=== PATIENT | female | born 1985 | race Caucasian/White ===

== ENCOUNTER 2017-07-02 16:20 | Emergency (ER) | payer MEDICAID, OTHER ==
[2017-07-02 16:20] VITALS: BMI 30.9
[2017-07-02 17:37] LABS: BASO % 0.4 % (0.0-2.0); EOS # 0.3 K/uL (0.0-0.7); EOS % 2.6 % (0.0-4.0); HEMATOCRIT 37.1 % (34.0-47.0); LYMPH # 2.7 K/uL (1.0-4.3); LYMPH % 22.1 % (20.0-40.0); MEAN CELL VOLUME 70.4 fL (81.0-99.0); MEAN CORPUSCULAR HEMOGLOBIN 22.2 pg (27.0-31.0); MEAN CORPUSCULAR HGB CONC 31.5 g/dL (33.0-37.0); MEAN PLATELET VOLUME 8.8 fL (7.2-11.7); MONO # 0.5 K/uL (0.0-0.8); MONO % 4.3 % (0.0-10.0); RED CELL DISTRIBUTION WIDTH 14.3 % (11.5-14.5); WHITE BLOOD COUNT 12.2 K/uL (4.8-10.8)
[2017-07-02 17:44] LABS: RBC URINE 16 /hpf (0-3); URINE BACTERIA RARE (<OCC); URINE BILIRUBIN NEGATIVE (NEGATIVE); URINE BLOOD 3+ (NEGATIVE); URINE COLOR Yellow (YELLOW); URINE GLUCOSE (UA) NORMAL (Normal); URINE KETONE NEGATIVE (NEGATIVE); URINE LEUKOCYTE ESTERASE TRACE Leu/uL (Negative); URINE PROTEIN 1+ mg/dL (NEGATIVE); URINE UROBILINOGEN NORMAL mg/dL (0.2-1.0); WBC URINE 7 /hpf (0-5)
[2017-07-02 17:49] LABS: CHLORIDE 99 mmol/L (98-107); POTASSIUM 3.5 mmol/L (3.6-5.2); SODIUM 137 mmol/L (132-148)
[2017-07-02 17:51] LABS: GFR AFRICAN-AMERICAN > 60
[2017-07-02 17:52] LABS: ALB/GLOB RATIO 1.1 (1.0-2.1); ALKALINE PHOSPHATASE 67 U/L (38-126); ALT/SGPT 24 U/L (9-52); AST/SGOT 19 U/L (14-36); BILIRUBIN,TOTAL 0.5 mg/dL (0.2-1.3); BLOOD UREA NITROGEN 10 mg/dL (7-17); CARBON DIOXIDE 23 mmol/L (22-30); GLUCOSE,RANDOM 109 mg/dL (65-105); TOTAL PROTEIN 7.2 g/dL (6.3-8.3)
[2017-07-02 17:53] LABS: CALCIUM 8.8 mg/dl (8.6-10.4)
[2017-07-02] MEDS ORDERED: Sodium Chloride 0.9% 1,000 ML IV ONE (17:53)
[2017-07-02] MEDS ORDERED: Sodium Chloride 0.9% 1,000 ML ONE (18:07)
--- NOTE | 2017-07-02 20:44 | US ---
EXAM: US , Transvaginal CLINICAL HISTORY: 31 years old, female; Signs and symptoms; Lmp or gestational age (in weeks): 6-4-27; Other: Bleeding / clots; ; Patient HX: Beta 2280.40; Additional info: Pain/bleeding, R/O ectopic. TECHNIQUE: Real-time transvaginal obstetrical ultrasound of the maternal pelvis and a first trimester with image documentation. Transvaginal imaging was used for better evaluation of the fetus and adnexa. COMPARISON: No relevant prior studies available. FINDINGS: Gestation: A gestational sac is noted within the cervix. The sac measures 1.6 x 0.9 x 1.2 cm for a mean sac diameter 1.2 cm from its later 5 weeks and 3 days. A yolk sac is present. A pole is present. No cardiac activity is noted. Placenta/amniotic fluid: Cannot be adequately evaluated due to the early gestational age. Uterus/cervix: There is a small amount of complex fluid noted within the endometrial canal. The stripe measures a 9 mm in thickness. No myometrial mass. Ovaries: The left ovary measures 2.4 x 1.6 x 2.2 cm. Subcentimeter follicles are present. Blood flow is seen in the left ovary on color Doppler examination. The right ovary measures 3 point 2 x 2 by 3.1 cm. Blood flow seen in the right ovary on color Doppler examination subcentimeter follicles present. No mass. Free fluid: No free fluid. IMPRESSION: 1. in progress. The gestational sac was noted within the cervix at the beginning of the examination and had moved distally at the end of the examination. No cardiac activity was noted within the pole. EXAM: US First Trimester, Transabdominal CLINICAL HISTORY: 31 years old, female; Signs and symptoms; Lmp or gestational age (in weeks): 6-4-27; Other: Bleeding / clots; ; Patient HX: Beta 2280.40; Additional info: Pain/bleeding, R/O ectopic. TECHNIQUE: Real-time transabdominal obstetrical ultrasound of the maternal pelvis and a first trimester with image documentation. EXAM DATE/TIME: Exam ordered 07/02/2017 5:50 PM COMPARISON: No relevant prior studies available. FINDINGS: Placenta/amniotic fluid: Cannot be adequately evaluated due to the early gestational age. Uterus/cervix: The uterus measures 11.5 x 4.5 x 5.9 cm. . Complex fluid is noted within the inferior aspect of the endometrial canal. No myometrial mass. Ovaries: The right ovary measures 3.1 x 2 x 3.5 cm. And 1.8 cm hypoechoic lesion is noted in the right ovary. Blood flow is demonstrated in the right ovary on pulsed Doppler and color Doppler examination. The left ovary is not seen as a separate structure. Free fluid: No free fluid. IMPRESSION: Complex fluid noted within the endometrial canal inferiorly. Please see the report for the transvaginal ultrasound for full discussion of the findings on this examination.
--- NOTE | 2017-07-02 21:57 | C.PDOC ---
Time Seen by Provider: 07/02/17 16:38 Chief Complaint (Nursing): Female Genitourinary History Per: Patient, Family Onset/Duration Of Symptoms: Days (1) Current Symptoms Are (Timing): Still Present Severity: Moderate Quality Of Discomfort: Cramping Alleviating Factors: None Additional History Per: Prior Records Abnormal Vaginal Bleeding: Yes Last Menstral Period: 05/09/2017 Past Medical History Reviewed: Historical Data, Nursing Documentation, Vital Signs Vital Signs: Last Vital Signs Temp 98.1 F 07/02/17 16:23 Pulse 78 07/02/17 16:23 Resp 15 07/02/17 16:23 BP 121/79 07/02/17 16:23 Pulse Ox 100 07/02/17 16:23 - Medical History PMH: No Chronic Diseases - [facility] Procedures INTRODUCTION OF SERUM/TOX/VACCINE INTO MUSCLE, PERC APPROACH (09/26/15) REPAIR FEMALE PERINEUM, EXTERNAL APPROACH (09/26/15) Family History: States: Unknown Family Hx - Social History Hx Alcohol Use: No Hx Substance Use: No Review Of Systems Except As Marked, All Systems Reviewed And Found Negative. Constitutional: Negative for: Fever, Weakness Cardiovascular: Negative for: Chest Pain, Light Headedness Respiratory: Negative for: Shortness of Breath Gastrointestinal: Negative for: Vomiting Genitourinary: Positive for: Vaginal Bleeding, Pelvic Pain. Negative for: Dysuria Musculoskeletal: Negative for: Neck Pain, Back Pain Skin: Negative for: Rash Neurological: Negative for: Weakness, Numbness, Seizures, Altered Mental Status Physical Exam - Physical Exam Appears: Non-toxic, No Acute Distress Skin: Normal Color, Warm, Dry, No Rash Head: Atraumatic, Normacephalic Eye(s): bilateral: Normal Inspection, PERRL, EOMI Neck: Normal ROM, Supple Cardiovascular: Rhythm Regular Respiratory: Normal Breath Sounds, No Accessory Muscle Use Gastrointestinal/Abdominal: Soft, Tenderness (suprapubic) Back: No CVA Tenderness Extremity: Normal ROM Neurological/Psych: Oriented x3, Normal Motor, Normal Sensation ED Course And Treatment - Laboratory Results Result Diagrams: 07/02/17 17:30 07/02/17 17:30 Urine POC: Positive O2 Sat by Pulse Oximetry: 100 Pulse Ox Interpretation: Normal - CT Scan/US Pelvic US Other Rad Studies (CT/US): Read By Radiologist, Radiology Report Reviewed CT/US Interpretation: IMPRESSION: Complex fluid noted within the endometrial canal inferiorly. Please see the. report for the transvaginal ultrasound for full discussion of the findings on. this examination. Reassessment Condition: Improved - Physician Consult Information Physician Contacted: Colin Degroot (masonry inspector) Outcome Of Conversation: She performed a pelvic exam on pt. She states pt should be discharged home on Doxycycline for 5 days and f/up in clinic. Disposition Counseled Patient/Family Regarding: Studies Performed, Diagnosis, Need For Followup, Rx Given - Disposition Referrals: [facility] [Outside] Disposition: HOME/ ROUTINE Disposition Time: 21:57 Condition: STABLE Additional Instructions: Follow up with a Cloth Sponger within 1 week for further evaluation and treatment. Return to the ER if you develop dizziness, fever, worsening of symptoms or if you have any other concerns. Prescriptions: Doxycycline Hyclate 100 mg PO BID #10 capsule Ibuprofen [Motrin Tab] 600 mg PO Q8 PRN #30 tab PRN Reason: Pain, Moderate (4-7) Instructions: Spontaneous Miscarriage (ED) Forms: [employer] ([place]) - Clinical Impression Clinical Impression: Spontaneous
[2017-07-02 22:14] VITALS: BP 121/80; PULSE 86; RESP 18; TEMP 97.8; O2SAT 99
== END 2017-07-02 22:13 | disposition home or self-care (01) ==
LOC: C.ER 16:20
DX: O03.9 Complete or unspecified spontaneous abortion without complication (principal)
CPT/HCPCS: 76805; 76817; 80053; 81001; 84702; 84703; 85025; 86850; 86900; 96360; 99285; J7040

== ENCOUNTER 2019-01-31 07:21 | Inpatient (IN) | payer MEDICAID, OTHER ==
[2019-01-31] MEDS ORDERED: Lactated Ringer's 1,000 ML IV SCH (09:00)
--- NOTE | 2019-01-31 09:06 | OBHP ---
Datetime: 01/31/2019 09:00 IP Adm Impression: Term, intrauterine ; Active labor IP Admit Plan: Admit to unit; Initiate labor protocol Admit Comment, IP Provider: at 39+weeks came with c/o cts starte thursday and became worse lst ni ght, 06/08.c/o vginal spotting, no lof+fm ovhx 1 x /s, 1 x pmh gdma1 med pn all nkda psh de soch de ve /-2 a/p at 39+weeks gd,a1/in labor pln admit t l_d npo/ivf labs pain magement [place] d efm pitocin for agmenttion gbs pohlyaxis aticpate Pelvic Type - PN: Adequate Extremities - PN: Normal Abdomen - PN: Normal Back - PN: Normal Breast - PN: Normal Lungs - PN: Normal Heart - PN: Normal Thyroid - PN: Normal Neurologic - PN: Normal HEENT - PN: Normal General - PN: Normal FHR - Baseline A Provider: 140 Contraction Comments Provider: lars IP Hx Assessment: The History has been Reviewed and is Current EGA AdmitDate IP: 39.3 Vital Signs Provider: Reviewed; Within Normal Limits IP Chief Complaint: Uterine contractions; Vaginal bleeding NICHD Variability Prov Fetus A: Moderate 6-25bpm NICHD Accel Fetus A IP Provider: [id number] NICHD Decel Fetus A IP Provider: None Dilatation, Provider: 4 Effacement, Provider: 70 Station, Provider: -2 Genitourinary Exam: Normal DTRs - PN: Normal
[2019-01-31] MEDS ORDERED: Penicillin G 5 Million Unit Vial IVPB ONE ×2 (09:09→09:15)
[2019-01-31] MEDS ORDERED: Oxytocin 30 UNIT 30 UNITS/500 ML BAG IV ONE ×2 (09:09→09:15)
[2019-01-31 09:12] LABS: BASO % 0.5 % (0.0-2.0); EOS # 0.2 K/uL (0.0-0.7); EOS % 2.1 % (0.0-4.0); HEMOGLOBIN 9.8 g/dL (11.0-16.0); LYMPH # 2.5 K/uL (1.0-4.3); LYMPH % 29.2 % (20.0-40.0); MEAN CORPUSCULAR HEMOGLOBIN 19.7 pg (27.0-31.0); MEAN CORPUSCULAR HGB CONC 31.1 g/dL (33.0-37.0); MEAN PLATELET VOLUME 9.1 fL (7.2-11.7); MONO # 0.4 K/uL (0.0-0.8); MONO % 5.2 % (0.0-10.0); NEUT # 5.3 K/uL (1.8-7.0); NRBC % 0.1 % (0.0-2.0); RBC 4.96 Mil/uL (3.80-5.20); RED CELL DISTRIBUTION WIDTH 16.9 % (11.5-14.5); WHITE BLOOD COUNT 8.5 K/uL (4.8-10.8)
[2019-01-31 09:19] LABS: MEAN CELL VOLUME 63.3 fL (81.0-99.0)
[2019-01-31 09:25] LABS: ALB/GLOB RATIO 1.2 (1.0-2.1); ALBUMIN 3.6 g/dL (3.5-5.0); ALT/SGPT 15 U/L (9-52); AST/SGOT 27 U/L (14-36); BLOOD UREA NITROGEN 6 mg/dL (7-17); CALCIUM 8.8 mg/dl (8.6-10.4); GFR NON-AFRICAN AMERICAN > 60
[2019-01-31] MEDS ORDERED: Oxytocin 30 UNIT 30 UNITS/500 ML BAG IV SCH (09:45)
--- NOTE | 2019-01-31 13:54 | OBPN ---
Datetime: 01/31/2019 13:52 IP Progress Impression: Normal progression of labor IP Procedures: Sterile Vag Exam IP Progress Plan: Continue present management FHR - Baseline A Provider: 130 IP Progress Note Comment: pt was examined at bed side ve 6/100/-1 epidural cont donald gbs pr ticipate NICHD Variability Prov Fetus A: Moderate 6-25bpm Dilatation, Provider: 6 Effacement, Provider: 100 Station, Provider: -1 Datetime: 01/31/2019 09:00 Contraction Comments Provider: irrg Vital Signs Provider: Reviewed; Within Normal Limits NICHD Accel Fetus A IP Provider: [id number] NICHD Decel Fetus A IP Provider: None
[2019-01-31] MEDS ORDERED: Benzocaine/Menthol 20%-0.5% Topical Spray (60 ml) TOP PRN (14:26)
[2019-01-31] MEDS ORDERED: Oxycodone/Acetaminophen 5/325 mg Tab PO PRN (14:26)
--- NOTE | 2019-01-31 14:26 | OBDS ---
MATERNAL INFORMATION Provider Comments: dr gomez private baby de;ivrd in jermaine com. no cord placente spontenously end clen no com agpoa 08/08 LABOR SUMMARY EDC: 02/04/2019 00:00 No. Babies in Womb: 1 Attempted: Yes LABOR INFORMATION Reason for Induction: Not Applicable Reason for Induction Other: N/A Onset of Labor: 01/31/2019 08:00 Other Ripening Agents: N/A Oxytocin: Augmentation Group B Beta Strep: Positive Antibiotics Time of Last Dose: 01/31/19 @ Steroids Given: None Reason Steroids Not Administered: Not Applicable Other Reason Not Administered: N/A MEMBRANES Membranes Rupture Method: Spontaneous Rupture of Membranes: 01/31/2019 11:00 Length of Rupture (hrs): 3.25 Amniotic Fluid Color: Clear Amniotic Fluid Amount: Moderate Amniotic Fluid Odor: Normal STAGES OF LABOR Stage 3 hrs: 0 Stage 3 min: 3 Total Time in Labor hrs: 6 Total Time in Labor min: 18 VAGINAL DELIVERY Laceration Extension: N/A Laceration Type: None Sponge Count Correct: Yes Sharps Count Correct: N/A BABY A INFORMATION Infant Delivery Date/Time: 01/31/2019 14:15 Method of Delivery: Vaginal Born in Route : No SHOULDER DYSTOCIA BABY A Delivery Date/Time: 01/31/2019 14:15 PRESENTATION/POSITION BABY A Presentation: Cephalic Cephalic Presentation: Vertex Vertex Position: Right Occipital Anterior Breech Presentation: N/A PLACENTA INFORMATION BABY A Placenta Delivery Time : 01/31/2019 14:18 Placenta Method of Delivery: Spontaneous Placenta Status: Delivered INFORMATION BABY A Gestational Age at Delivery: 39.3 Gestational Status: Term Outcome : Liveborn Infant Condition : Stable Sex: Female IDENTIFICATION/MEDS BABY A ID Band Number: [id number] Sensor Number: [id number] WEIGHT/LENGTH BABY A Infant Birthweight (gms): 3500 Infant Weight (lb): 7 Weight (oz): 11 Length Inches: 21.50 Infant Length cms: 54.6 CORD INFORMATION BABY A No. Cord Vessels: 3 Nuchal Cord : N/A Nuchal Cord Other: N/A True Knot: N/A Cord Blood Taken: Yes Banking/Donate Info: N/A
[2019-01-31 16:49] LABS: SQUAMOUS EPITHIAL 15 /hpf (0-5); URINE BACTERIA OCC (<OCC); URINE BILIRUBIN NEGATIVE (NEGATIVE); URINE BLOOD 3+ (NEGATIVE); URINE CLARITY Hazy (Clear); URINE COLOR Yellow (YELLOW); URINE GLUCOSE (UA) NORMAL (Normal); URINE LEUKOCYTE ESTERASE TRACE Leu/uL (Negative); URINE PROTEIN 1+ mg/dL (NEGATIVE); URINE UROBILINOGEN NORMAL mg/dL (0.2-1.0)
[2019-01-31 17:31] VITALS: RESP 18
--- NOTE | 2019-02-01 07:27 | OBPPN ---
Datetime: 02/01/2019 07:22 PP Pain Prov: Within normal limits PP Nausea Prov: Denies PP Flatus Prov: Yes PP Abdomen/Uterus Prov: Normal PP Lochia Prov: Normal PP Extremities Prov: Normal PP Impression Prov: Normal progression PP Plan Prov: Continue present management PP Progress Note Prov: pt was seen at bed side, pain under control,no n.v, toretating eit, flatus+ ppd@1 cont pnv encoiurage ambulation cont pp care Vital Signs Provider PP: Reviewed; Within Normal Limits
[2019-02-01 08:22] LABS: BASO % 0.3 % (0.0-2.0); EOS # 0.2 K/uL (0.0-0.7); EOS % 1.2 % (0.0-4.0); HEMOGLOBIN 9.5 g/dL (11.0-16.0); LYMPH # 2.6 K/uL (1.0-4.3); LYMPH % 21.9 % (20.0-40.0); MEAN CELL VOLUME 63.8 fL (81.0-99.0); MEAN CORPUSCULAR HEMOGLOBIN 19.5 pg (27.0-31.0); MEAN CORPUSCULAR HGB CONC 30.6 g/dL (33.0-37.0); MONO # 0.6 K/uL (0.0-0.8); MONO % 5.1 % (0.0-10.0); NEUT # 8.6 K/uL (1.8-7.0); NEUT % 71.5 % (50.0-75.0); NRBC % 0.1 % (0.0-2.0); RBC 4.86 Mil/uL (3.80-5.20); WHITE BLOOD COUNT 12.1 K/uL (4.8-10.8)
[2019-02-01] MEDS ORDERED: Multiple Vitamins Tab PO SCH (10:00)
[2019-02-01] MEDS ORDERED: Tdap Vaccine 0.5 ml Vial (10-64 yrs) IM ONE (20:01)
[2019-02-02 10:14] VITALS: BP 102/55; PULSE 66; O2SAT 99
[2019-02-02 13:54] VITALS: TEMP 97.4
== END 2019-02-02 09:50 | disposition home or self-care (01) | DRG 807 ==
LOC: C.EROB 07:21 → C.4D 08:01 → C.4M 16:06
PROVIDERS: ADMIT Obstetrics & Gynecology; ATTEND Obstetrics & Gynecology
PROC: 10E0XZZ Delivery of Products of Conception, External Approach (ICD-10-PCS; principal; 2019-01-31)
DX: O99.820 Streptococcus B carrier state complicating pregnancy (principal); Z37.0 Single live birth; Z3A.39 39 weeks gestation of pregnancy